=== PATIENT | female | born 1985 | race Caucasian/White ===

== ENCOUNTER 2018-06-03 22:41 | Emergency (ER) | payer MEDICAID ==
[~2018-06-03] VITALS: Ht 152.4 cm; Wt 71.4 kg
[~2018-06-03 22:41] MED LIST: CYCL-1 PO; DIAZ5TAB PO
[2018-06-03 22:45] VITALS: BP 105/61
[2018-06-04] MEDS ORDERED: ibuprofen tablet 400 MG TABLET PO ONE (00:10)
[2018-06-04] MEDS ORDERED: AMOX-580 PO (00:15)
[2018-06-04] MEDS ORDERED: IBUP-1984 PO (00:15)
[2018-06-04] MEDS ORDERED: ibuprofen 200mg tablet PO ONE (00:25)
== END 2018-06-04 00:22 | disposition home or self-care (01) ==
LOC: ER 22:43
DX: K02.9 Dental caries, unspecified (principal); G89.29 Other chronic pain; Z79.1 Long term (current) use of non-steroidal anti-inflammatories (NSAID); Z79.2 Long term (current) use of antibiotics
CPT/HCPCS: 99283

== ENCOUNTER 2019-03-29 23:40 | Emergency (ER) | payer SELFPAY ==
[~2019-03-29] VITALS: Ht 152.4 cm; Wt 5.9 kg
[2019-03-29 23:42] VITALS: BP 124/76
--- NOTE | 2019-03-30 00:49 | NUR ---
pt is here for an ok to return to work slip. She had a misscarriage last week, doesn't want to tell her employer that and here for a note.
== END 2019-03-30 01:18 | disposition home or self-care (01) ==
LOC: ER 23:40
DX: N93.8 Other specified abnormal uterine and vaginal bleeding (principal); G89.29 Other chronic pain; R51 Headache
CPT/HCPCS: 99281

== ENCOUNTER 2023-12-18 13:56 | Emergency (ER) | payer MEDICAID ==
[~2023-12-18] VITALS: Ht 152.4 cm; Wt 56.4 kg
[2023-12-18] MEDS: HYDROcodone/acetaminophen 10/325mg tab PO ONE (15:27)
[2023-12-18] MEDS ORDERED: FLUT16SP BOTHNARES (15:48)
[2023-12-18] MEDS ORDERED: AMOX-580 PO (15:48)
[2023-12-18] MEDS ORDERED: [UNRECOGNIZED DRUG - CODE] PO (15:48)
[2023-12-18 16:00] VITALS: BP 124/78; PULSE 68; RESP 18; TEMP 98.2; O2SAT 99
== END 2023-12-18 16:09 | disposition home or self-care (01) ==
LOC: ER 13:56
DX: J01.80 Other acute sinusitis (principal); G89.29 Other chronic pain; M54.9 Dorsalgia, unspecified; Z79.899 Other long term (current) drug therapy; Z79.52 Long term (current) use of systemic steroids
CPT/HCPCS: 99283; A6449

== ENCOUNTER 2024-05-24 19:39 | Emergency (ER) | payer MEDICAID ==
[~2024-05-24] VITALS: Ht 152.4 cm; Wt 55.9 kg
[~2024-05-24 19:39] MED LIST changes: +FLUT16SP BOTHNARES; +[UNRECOGNIZED DRUG - CODE] PO
[2024-05-24 19:40] VITALS: BP 120/59; PULSE 76; O2SAT 99
[2024-05-24] MEDS ORDERED: CYCL-394 PO (20:12)
[2024-05-24] MEDS ORDERED: LIDO700A32 TOP (20:12)
[2024-05-24 20:25] VITALS: RESP 16
[2024-05-24] MEDS ORDERED: ketorolac trometh 30MG/ML vial 30 MG/ML VIAL IM ONE (20:25)
[2024-05-24] MEDS: ketorolac trometh 15mg/ml vial 15 MG/ML ML IM ONE (20:25)
[2024-05-24 20:31] VITALS: TEMP 97.9
== END 2024-05-24 20:33 | disposition home or self-care (01) ==
LOC: ER 19:39
DX: M54.59 Other low back pain (principal); G89.29 Other chronic pain; Z79.899 Other long term (current) drug therapy
CPT/HCPCS: 96372; 99283; J1885

== ENCOUNTER 2024-06-11 08:37 | Emergency (ER) | payer MEDICAID ==
[~2024-06-11] VITALS: Ht 152.4 cm; Wt 55.9 kg
[~2024-06-11 08:37] MED LIST changes: +LIDO700A32 TOP
[2024-06-11 08:40] VITALS: BP 121/62; PULSE 73; TEMP 97; O2SAT 100
[2024-06-11] MEDS ORDERED: ketorolac trometh 15mg/ml vial 15 MG/ML ML IM ONE (09:20)
[2024-06-11] MEDS ORDERED: METH-798 PO (09:23)
[2024-06-11] MEDS ORDERED: PRED50TA PO (09:23)
--- NOTE | 2024-06-11 09:24 | Physician Documentation ---
History of Present Illness ~ Chief Complaint: Back Pain Stated Complaint: BACK PAIN Time Seen by MD: 09:14 OK to notify your PCP?: Yes [facility] Medical [facility] Source: patient Mode of Arrival: POV Exam Limitations: no limitations HPI This is a 31-year-old female who comes in complaining of acute on chronic back pain. The patient states she has a ongoing history of neck and back pain as well as history of scoliosis. The patient states that is she was seen by her primary care physician and had x-rays performed and has been referred to physical therapy however her PCP told her to come to the ER for a shot of pain medication. The patient denies radicular pain going in the legs, saddle paresthesias or loss of bowel control. She denies inability straighten up and ambulate. Currently the pain is 8/10 aching throbbing sensation. Medication Reconciliation Allergies: Coded Allergies: No Known Allergies (Unverified , 06/11/24) Scheduled Fluticasone Propionate (Fluticasone Propionate), 2 SPRAYS BOTHNARES DAILY Lidocaine (Lidoderm), 1 PATCH TOP DAILY Pseudoephedrine HCl (Suphedrin 12-Hour), 1 TAB PO BID Scheduled PRN Cyclobenzaprine* (Cyclobenzaprine*), 1 TABLET PO Q8H PRN for muscle spasms Diazepam (Valium), 1 TABLET PO TID PRN for spasm Discontinued Medications Cyclobenzaprine HCl (Cyclobenzaprine HCl), 1 TAB PO Q8H Discontinued Reason: Auto Discontinued Past Medical History Past Medical History: Chronic Back Pain Past Surgical History: noncontributory Alcohol Use: None Drug Use: none Lives with: Spouse Physical Exam Physical Exam Vital Signs: Temperature: 97.0, Heart Rate: 73, Respiratory Rate: 14, BP: 121/62, Pulse Oximetry: 100, Weight: 55.910 Pulse Oximetry Reflects: adequate oxygenation General Appearance: alert, WD/WN, no apparent distress Neck The patient has full range of motion of the cervical spine however she does complain of pain with the rotation cervical spine. No midline step-off deformity or point tenderness. There is tenderness to palpation of the bilateral paraspinal muscles of the cervical spine Back To inspection of the back no obvious trauma or gross deformity. No midline step-off deformity point tenderness of the thoracolumbar spine. There is tenderness to palpation bilateral paraspinal muscles of the thoracolumbar spine. She has good range of motion of the trunk with flexion-extension rotation but again she complains of subjective pain with the movement. Progress Results/Orders Reviewed/noted all lab results: Yes Results/Orders Vital Signs 06/11/24 08:40 Temp 97.0 Pulse 73 Resp 14 B/P (MAP) 121/62 Pulse Ox 100 Medical Decision Making Findings The patient received Decadron 10 mg IM and Toradol 30 mg IM. I will send the patient home with the bursa with the prednisone 50 mg once a day for the next four days and instructed her to continue to follow up with the primary care macie okeefe and physical therapy. She has not no signs of cauda equina syndrome or focal neuro deficits. You can return to the ER for any worsening or acute issues. Differential Diagnosis Acute on chronic back pain. Scoliosis. Degenerative spine disease. Departure Disposition: HOME / SELF CARE / HOMELESS Impression: Primary Impression: Chronic back pain Condition: Stable Discharge Instructions: Chronic Back Pain Additional Instructions: Take all medications as prescribed. Continue to follow up with the primary care physician and physical therapy. Return to the ER for any worsening or acute issues Referrals: NO PRIMARY CARE PROVIDER (PCP) Prescriptions Methocarbamol (Methocarbamol) 750 Mg Tablet 1 TAB PO Q8H for Musculoskeletal pain, #20 TAB 0 Refills Prov: LUKE CAO 06/11/24 Prednisone (Prednisone) 50 Mg Tablet 1 TAB PO DAILY for 4 Days, #4 TAB 0 Refills Prov: LUKE CAO 06/11/24 Signature Scribe Signature: No scribe Attestation: The note accurately reflects work and decisions made by me.Luke SÁNCHEZ 06/11/24 09:24 LUKE CAO June 11, 2024 09:24
[2024-06-11 09:33] VITALS: RESP 18
[2024-06-11] MEDS: dexamethasone sod phosphate 10mg/ml inj IM STA (09:33)
[2024-06-11] MEDS: ketorolac trometh 30MG/ML vial 30 MG/ML VIAL IM ONE (09:33)
== END 2024-06-11 09:38 | disposition home or self-care (01) ==
LOC: ER 08:38
DX: G89.29 Other chronic pain (principal); M54.9 Dorsalgia, unspecified; Z79.899 Other long term (current) drug therapy
CPT/HCPCS: 96372; 99284; J1100; J1885

== ENCOUNTER 2024-11-06 17:42 | Emergency (ER) | payer SELFPAY ==
[~2024-11-06] VITALS: Ht 152.4 cm; Wt 55.9 kg
[~2024-11-06 17:42] MED LIST changes: +LIDO-52 TOP; -LIDO700A32 TOP; +METH-798 PO; +PRED50TA PO
[2024-11-06 18:08] VITALS: BP 133/81; PULSE 74; O2SAT 99
--- NOTE | 2024-11-06 19:02 | Physician Documentation ---
History of Present Illness ~ General Chief Complaint: Multiple Medical Complaints Stated Complaint: FACIAL SWELLING/BACK PAIN Time Seen by MD: 19:41 Primary Medical Doctor: [facility] History of Present Illness Initial Comments This is a 39-year-old female who presents with left-sided low back pain radiating to left leg, patient reports pain is chronic though worse today. Patient reports no new weakness or numbness in legs or loss of bowel or bladder control. Patient additionally reports recent sinus congestion and pain. Medication Reconciliation Allergies: Coded Allergies: No Known Allergies (Unverified , 06/11/24) Scheduled Cyclobenzaprine* (Cyclobenzaprine*), 1 TAB PO TID Fluticasone Propionate (Fluticasone Propionate), 2 SPRAYS BOTHNARES DAILY Ibuprofen (Ibuprofen), 1 TAB PO Q8H Lidocaine (Lidoderm), 1 PATCH TOP DAILY Lidocaine (Lidoderm), 1 PATCH TOP DAILY Loratadine (Loratadine), 1 TAB PO DAILY Methocarbamol (Methocarbamol), 1 TAB PO Q8H Prednisone (Prednisone), 1 TAB PO DAILY Pseudoephedrine HCl (Suphedrin 12-Hour), 1 TAB PO BID Pseudoephedrine HCl (Sudafed), 2 TAB PO Q8H Scheduled PRN Cyclobenzaprine* (Cyclobenzaprine*), 1 TABLET PO Q8H PRN for muscle spasms Diazepam (Valium), 1 TABLET PO TID PRN for spasm Past Medical History Past Medical History: Chronic Back Pain Past Surgical History: noncontributory Alcohol Use: None Drug Use: none Lives with: Spouse Review of Systems ROS As stated above in the HPI, otherwise all systems are reviewed and negative. Physical Exam Physical Exam Vital Signs: Temperature: 98.9, Source: Temporal, Heart Rate: 74, Respiratory Rate: 18, BP: 133/81, Pulse Oximetry: 99, Weight: 55.900 Oxygen Flow Rate: 0 Physical Exam VITALS: Reviewed and as above. GENERAL: Alert, nontoxic appearing, no apparent distress. 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 No central spinal tenderness, no step-offs, no crepitus Progress Results/Orders Results/Orders Completed Orders - KAYLA,ETHEL W MEASUREMENT SUPERINTENDENT Ketorolac Trometh 15mg/Ml Vial (Toradol (11/06/24 20:50) Cyclobenzaprine Tablet (Flexeril Tablet) (11/06/24 20:50) Lidocaine 5% Patch (Lidoderm 5% Patch) (11/06/24 20:50) Pseudoephedrine Tablet (Sudafed Tablet) (11/06/24 20:50) Vital Signs 11/06/24 11/06/24 11/06/24 18:08 21:06 21:15 Temp 98.9 98.9 Pulse 74 Resp 18 16 B/P (MAP) 133/81 Pulse Ox 99 O2 Flow Rate 0 Medical Decision Making Findings MSE performed in triage and patient returned to ED lobby by nursing staff to await available ED room This 39 year-old female presented with left sided lower back pain radiating to her left leg, while patient reported history of chronic low back pain reports pain is worse today. It was reassuring. Patient reported no due weakness or numbness in her legs, no loss of sadi platter, control, no saddle paresthesia, and no recent fevers, no recent trauma, and no past history of IV drug use, tuberculosis, or cancer. Physical exam demonstrated tenderness to the left lower lumbar back though reassuringly no tenderness to central spine. Imaging was not indicated in the ED. I doubt spinal fracture, epidural hematoma, epidural abscess, unstable spinal pathology, emergent renal or aortic pathology, or spinal cord compression. Findings represent acute on chronic low back pain. Patient medicated for back pain. Patient had additional concern for two weeks of sinus congestion and pain alternating between left and right side of face, it was reassuring. Patient reported pain was not severe and reported new fevers or other recent illness. Physical exam demonstrated somewhat swollen nasal turbinates however there was no significant pain on percussion or palpation the face and there was no facial swelling. In shared decision-making with patient treatment plan will be nasal steroids and allergy medication for sinus pain, prescribed medications for back pain, and follow up with primary care as scheduled in three days. Patient was well appearing and hemodynamically stable on discharge. Upon discharge, the patients pain was controlled, and the patient was ambulatory without a risk of falling. Return precautions were discussed including worsening pain, new/worsening weakness/numbness, difficulty urinating, or incontinence. Differential Diagnosis Cauda equina, spinal fracture, spinal cord compression, epidural abscess, menigitis, bacterial sinusitis, allergic sinusitis, viral sinusitis, malignancy Departure Time of Disposition: 20:23 Disposition: 01 HOME / SELF CARE / HOMELESS Impression: Primary Impression: Low back pain Qualified Codes: M54.42 - Lumbago with sciatica, left side; G89.29 - Other chronic pain Additional Impression: Sinus congestion Condition: Improved Discharge Instructions: Acute Back Pain, Adult, Sinus Pain Additional Instructions: Please use medications as prescribed, the nasal steroid may take several days to begin working. Please follow up as scheduled with your primary care provider. Do not take the ibuprofen tonight as you received a Toradol injection which replaces this medication, do not drive or operate heavy machinery while taking the Flexeril and do not drink alcohol or use opioid medications with medication. Please follow up with your primary care provider in the next few days. Please return to the emergency department for any new or worsening concerning symptoms including but not limited to fever, new weakness or numbness in your legs, or loss of bowel or bladder control. Referrals: NO PRIMARY CARE PROVIDER (PCP) Prescriptions Loratadine (Loratadine) 10 Mg Tablet 1 TAB PO DAILY for allergy symptoms for 30 Days, #30 TAB 0 Refills Prov: ETHEL GARZA 11/06/24 Pseudoephedrine HCl (Sudafed) 30 Mg Tablet 2 TAB PO Q8H for 7 Days, #42 TAB 0 Refills Prov: ETHEL GARZA 11/06/24 Lidocaine (Lidoderm) 5 % Adh..patch 1 PATCH TOP DAILY for 30 Days, #10 PATCH 0 Refills may wear up to 12 hours Prov: ETHEL GARZA 11/06/24 Ibuprofen (Ibuprofen) 800 Mg Tablet 1 TAB PO Q8H for pain for 10 Days, #30 TAB 0 Refills Prov: ETHEL GARZA 11/06/24 Cyclobenzaprine* (Cyclobenzaprine*) 10 Mg Tablet 1 TAB PO TID, #15 TAB Prov: ETHEL GARZA 11/06/24 Education Educated: Patient Educated regarding: diagnosis, treatment, prognosis, need for follow up Signature Scribe Signature: No Scribe Attestation: The note accurately reflects work and decisions made by me.LAURITA Whitehead 11/07/24 13:14 ETHEL GARZAP Nov 06, 2024 19:02
[2024-11-06] MEDS ORDERED: LORA10TA7 PO (20:34)
[2024-11-06] MEDS ORDERED: PSEU-303 PO (20:34)
[2024-11-06] MEDS ORDERED: LIDO-52 TOP (20:34)
[2024-11-06] MEDS ORDERED: CYCL-1 PO (20:34)
[2024-11-06] MEDS ORDERED: IBUP-1986 PO (20:34)
[2024-11-06 21:06] VITALS: RESP 16
[2024-11-06] MEDS: ketorolac trometh 15mg/ml vial 15 MG/ML ML IM ONE (21:06)
[2024-11-06] MEDS: pseudoephedrine 30mg tablet PO ONE (21:06)
[2024-11-06 21:15] VITALS: TEMP 98.9
== END 2024-11-06 21:16 | disposition home or self-care (01) ==
LOC: ER 17:43
DX: M54.50 Low back pain, unspecified (principal); R09.81 Nasal congestion; Z79.899 Other long term (current) drug therapy
CPT/HCPCS: 96372; 99284; J1885